=== PATIENT | male | born 1945 | race Caucasian/White ===

== ENCOUNTER 2020-08-29 12:24 | Outpatient (REF) | payer MEDICARE, SELFPAY ==
--- NOTE | 2020-08-29 14:30 | MHC.AU.P13 ---
Adult Audiological Evaluation Date of Visit: 08/29/20 Reason for Appointment: Patient reports that in May 2020, he began to experience left-sided tinnitus. He describes the noise as an electronic hissing. He finds that throughout the day if he keeps busy or is surrounded by other noises, he does not notice the tinnitus. If the room is quiet, or when he is in bed at night, the tinnitus is more prominent. Patient also reports that many years ago he experienced a bad cold, and ever since then has noticed that he does not hear as well out of his left ear. Overall, he does not perceive hearing difficulty in day-to-day conversation. Ear History: Ear Deformity: None Reported Recent Ear Drainage: None Reported Recent Ear Pain: None Reported Family History of Hearing Loss?: Yes: Uncle Recent Ear Infections: None Reported Ear Infections in Childhood: None Reported History of Ear Wax Buildup: None Reported Previous Ear Surgery: None Reported Bothersome Tinnitus/Ringing/Noises in Ears: Left Ear Ear used on the phone: Right Ear Blocked/Full Sensation in Ear(s): None Reported History of occupational noise exposure?: No History: History: Yes Branch: [employer] Medical History: Medical History: Prostate Cancer, Hypertension, Lyme Disease in 2012 (which was successfully treated with oral antibiotics) Otoscopy: Right Ear: Unremarkable Left Ear: Unremarkable Tympanometry: Tympanometry performed due to: To assess integrity of the middle ear system Right Ear: Normal Middle Ear System (Type A) Left Ear: Non-compliant Middle Ear System (Type B) Hearing Evaluation: Transducer(s) Used: Insert Earphones Method: Conventional Audiometry Stimuli Used: Pure Tones Right Ear: Description of Hearing: Mild conductive hearing loss, rising to normal at 1000 Hz, and sloping to moderately-severe mixed hearing loss (mostly conductive) Left Ear: Description of Hearing: Moderate to profound mixed hearing loss (mostly conductive) Speech Recognition Threshold (SRT): Method Used: Recorded Lists Stimuli Used: Spondee Words Right Ear: 30 dBHL Left Ear: 55 dBHL Word Discrimination: Method: Recorded Lists Word Lists Used: NU-6 Right Ear: 100% at 70 dBHL Left Ear: 100% at 80 dBHL Most Comfortable Level (MCL): Right Ear: 70 dBHL Left Ear: 80 dBHL Interpretation of Results: Patient is presenting with middle ear dysfunction and mixed (mostly conductive) hearing loss that is worse in the left ear. Recommendations: Referral to Ear, Nose, and Throat is highly recommended to address asymmetrical mixed hearing loss. Diagnosis: Primary Diagnosis: H90.6 Mixed Hearing Loss, Bilateral Services Performed: Comprehensive Audiological Evaluation (CPT 31916), Tympanometry (CPT 03546) Signature: Provider: Fawad Power, CCC-A
== END 2020-08-29 12:25 | disposition home or self-care (01) ==
LOC: HO.SH 12:24
PROVIDERS: Visit Provider Pediatrics
DX: H90.6 Mixed conductive and sensorineural hearing loss, bilateral (principal)
CPT/HCPCS: 92557; 92567

== ENCOUNTER 2020-12-01 10:43 | Outpatient (REF) | payer MEDICARE, SELFPAY ==
--- NOTE | ~2020-12-01 | MR_ITS ---
EXAMINATION: MR BRAIN WITHOUT AND WITH CONTRAST CLINICAL INFORMATION: Left-sided tinnitus and sensorineural hearing loss. COMPARISON: None. TECHNIQUE: Multiplanar, multisequential imaging was obtained without and with intravenous contrast. Intravenous contrast: Gadavist 9 mL. FINDINGS: No diffusion abnormality is seen. Very mild nonspecific white matter signal changes noted which may be due to chronic microangiopathy. The ventricles are normal in size. No mass effect or midline shift is evident. No extra-axial fluid collections are noted. The brainstem and cerebellum are normal. There is no abnormal parenchymal or leptomeningeal enhancement. The VII and VIII cranial nerve complexes are normal in course and caliber. No signal abnormality is visualized within the inner ear structures on the precontrast axial T1-weighted sequence. Fluid signal is preserved within the cochlea, semicircular canals, and vestibule on the high-resolution axial FIESTA sequence. No cerebellopontine angle lesion is noted. There is no abnormal labyrinthine or intracanalicular enhancement on postcontrast imaging. 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 The craniovertebral junction, marrow signal, and remaining midline structures are normal. A subcentimeter focus of susceptibility artifact in the right cerebellar hemisphere may be due to a chronic microhemorrhage versus mineralization. The visualized portions of the major intracranial flow voids at the level of the [place] are preserved. The dural venous sinus flow voids are maintained. There is a mild amount of fluid in the left mastoid air cells. The right mastoid air cells and paranasal sinuses are well aerated. MR/MR head/brain wo/w con IMPRESSION: No retrocochlear pathology.
[2020-12-01 11:01] LABS: Blood Urea Nitrogen 22 mg/dL (9-16); Estimated Glomerular Filt Rate > 60
== END 2020-12-01 10:44 | disposition home or self-care (01) ==
LOC: HO.MRI 10:43
PROVIDERS: PCP Pediatrics; Visit Provider Otolaryngology
DX: H93.12 Tinnitus, left ear (principal); H90.3 Sensorineural hearing loss, bilateral
CPT/HCPCS: 36415; 70553; 82565; 84520; A9585